=== PATIENT | female | born 1990 | race Caucasian/White ===

== ENCOUNTER 2020-03-28 21:54 | Inpatient (IN) ==
[2020-03-28] MEDS ORDERED: BUTORPHANOL 1 MG/ML VIAL IV PRN (23:05)
[2020-03-28] MEDS ORDERED: ONDANSETRON 4 MG/2 ML VIAL IV PRN (23:05)
[2020-03-28] MEDS ORDERED: BUTORPHANOL 2 MG/ML VIAL IV PRN (23:05)
[2020-03-28] MEDS ORDERED: LACTATED RINGERS 500 ML IV PRN (23:05)
[2020-03-28] MEDS ORDERED: ACETAMINOPHEN 325 MG TABLET PO PRN (23:05)
[2020-03-28] MEDS ORDERED: MEPERIDINE 50 MG/1 ML VIAL IM PRN (23:05)
[2020-03-28 23:21] LABS: Basophils % 0.3 % (0.0-0.8); Eosinophils # 0.2 10*3/uL (0.0-0.87); Eosinophils % 1.3 % (0.00-10.9); Hematocrit 39.8 VOL% (35.7-47.0); Hemoglobin 13.4 GM/DL (12.0-16.0); Immature Granulocytes % 1.7 %; Lymphocytes # 2.9 10*3/uL (1.4-4.0); Lymphocytes % 24.5 % (21.3-54.2); Mean Corpuscular HGB Conc 33.7 GM/DL (32-36); Mean Corpuscular Volume 89.8 FL (87-102); Monocytes % 7.1 % (1.7-12.7); Neutrophils % 65.1 % (38.7-73.9); Platelet Count 208 T/CUMM (130-400); Red Blood Count 4.43 MC/CUMM (3.8-5.5); Red Cell Distribution Width 13.9 % (9.3-17.3); White Blood Count 11.9 T/CUMM (4-12)
[2020-03-29] MEDS: MEPERIDINE 50 MG/1 ML VIAL IV PRN ×2 (12:14→15:23)
[2020-03-29] MEDS: LACTATED RINGERS 1,000 ML IV SCH ×2 (14:05→16:03)
[2020-03-29] MEDS ORDERED: hydrOXYzine HCL 25 MG/1 ML VIAL IM PRN (15:37)
[2020-03-29] MEDS ORDERED: NALOXONE 0.4 MG/ML VIAL IV PRN (15:37)
[2020-03-29] MEDS ORDERED: diphenhydrAMINE 50 MG/1 ML VIAL IV PRN ×2 (15:37)
[2020-03-29] MEDS ORDERED: ePHEDrine 50 MG/ML VIAL IV PRN (15:37)
[2020-03-29] MEDS ORDERED: CITRIC ACID/SODIUM CITRATE 30 ML UDCUP PO ONE (15:37)
[2020-03-29] MEDS ORDERED: PROMETHAZINE 25 MG/1 ML VIAL IM ONE (15:37)
[2020-03-29] MEDS ORDERED: FAMOTIDINE 20 MG/2 ML VIAL IV ONE (15:37)
[2020-03-29] MEDS ORDERED: ONDANSETRON 4 MG/2 ML VIAL IV ONE (15:37)
[2020-03-29] MEDS ORDERED: CITRIC ACID/SODIUM CITRATE 30 ML UDCUP ONE (15:51)
[2020-03-29] MEDS ORDERED: fentaNYL 2 MCG/ROPIV 0.2% EPID 100 ML EPIDURAL SCH (16:00)
[2020-03-29] MEDS ORDERED: METHYLERGONOVINE 0.2 MG/1 ML AMP ONE (16:30)
[2020-03-29] MEDS ORDERED: CARBOPROST TROMETHAMINE 250 MCG/ML AMP IM ONE (16:30)
[2020-03-29] MEDS ORDERED: OXYTOCIN/LR 20 UNIT/1,000 ML BAG IV ONE ×2 (16:30→18:12)
[2020-03-29] MEDS ORDERED: LIDOCAINE MPF 2% /EPI 20 ML VIAL ONE (16:32)
[2020-03-29 17:59] LABS: Cord Arterial Blood HCO3 14.4 MMOL/L
[2020-03-29 18:02] LABS: Cord Venous Blood HCO3 16.3 MMOL/L; Cord Venous Blood PCO2 44.7 MMHG; Cord Venous Blood PO2 33.4
[2020-03-29] MEDS ORDERED: ACETAMINOPHEN 325 MG TABLET PO PRN (18:12)
[2020-03-29] MEDS ORDERED: IBUPROFEN 800 MG TABLET PO PRN (18:12)
[2020-03-29] MEDS ORDERED: MEASLES/MUMPS/RUBELLA VACCINE 0.5 ML VIAL SUBCUT ONE (18:12)
[2020-03-29] MEDS ORDERED: DIPH/TET/ACEL PERT BOOSTER VACCINE 0.5 ML VIAL IM ONE (18:12)
[2020-03-29] MEDS ORDERED: BISACODYL 10 MG SUPP RECTAL PRN (18:12)
[2020-03-29] MEDS ORDERED: BENZOCAINE 20%/MENTHOL 0.5% SPRAY 56 GM CAN TOP PRN (18:12)
[2020-03-29] MEDS ORDERED: HYDROCORTISONE 2.5% RECTAL CREAM 30 GM TUBE TOP PRN (18:12)
[2020-03-29] MEDS ORDERED: WITCH HAZEL PADS 100/JAR TOP PRN (18:12)
[2020-03-29] MEDS ORDERED: ONDANSETRON 4 MG/2 ML VIAL IV PRN (18:12)
[2020-03-29] MEDS ORDERED: RHO(D) IMMUNE GLOBULIN 300 MCG SYRINGE IM ONE (18:12)
[2020-03-29] MEDS ORDERED: LANOLIN 50% CREAM 0.3 OZ TUBE TOP PRN (18:12)
[2020-03-29] MEDS ORDERED: oxyCODONE/ACETAMINOPHEN 5-325 MG TABLET PO PRN ×2 (18:12)
[2020-03-30 05:46] LABS: Basophils # 0.1 10*3/uL (0.0-0.2); Basophils % 0.3 % (0.0-0.8); Eosinophils # 0.1 10*3/uL (0.0-0.87); Eosinophils % 0.5 % (0.00-10.9); Hematocrit 38.8 VOL% (35.7-47.0); Hemoglobin 12.8 GM/DL (12.0-16.0); Immature Granulocytes % 1.1 %; Immature Granulocytes Absolute 0.16 #; Lymphocytes # 2.5 10*3/uL (1.4-4.0); Lymphocytes % 16.3 % (21.3-54.2); Mean Corpuscular Volume 91.1 FL (87-102); Mean Platelet Volume 9.9 FL (9.6-12.0); Monocytes % 7.7 % (1.7-12.7); Neutrophils % 74.1 % (38.7-73.9); Platelet Count 167 T/CUMM (130-400); Red Blood Count 4.26 MC/CUMM (3.8-5.5); Red Cell Distribution Width 13.8 % (9.3-17.3)
[2020-03-30] MEDS: DOCUSATE SODIUM 100 MG CAPSULE PO SCH ×2 (09:33→21:18)
[2020-03-30] MEDS ORDERED: ENOXAPARIN 40 MG/0.4 ML SYRINGE SUBCUT SCH (12:13)
[2020-03-31 07:45] VITALS: BP 118/77
[2020-03-31] MEDS: DOCUSATE SODIUM 100 MG CAPSULE PO SCH (08:56)
== END 2020-03-31 11:15 | disposition home or self-care (01) | DRG 807 ==
LOC: N.LDOUT 21:54 → N.LD 21:57 → N.OB 03-29 21:00
PROVIDERS: ADMIT Specialist; ATTEND Specialist